=== PATIENT | female | born 1985 ===

== ENCOUNTER → 2018-05-12 10:01 | Emergency (ER) | payer OTHER ==
[2018-05-12 10:43] VITALS: BP 120/67
--- NOTE | 2018-05-12 11:58 | UC ---
Ear Complaint HPI - HPI Summary HPI Summary: Patient presents with a past medical history of Type 1 DM, well controlled. She presents today with complaints of one day right ear canal pain, and swelling. She denies any changes in her hearing. She also reports a swollen lymph node on the right side of her neck that came on at the same time as her ear pain. She denies any throat pain, difficulty swallowing, or speaking. - History of Current Complaint Chief Complaint: UCEar Stated Complaint: EAR PAIN Time Seen by Provider: 05/12/18 11:36 Hx Obtained From: Patient Hx Last Menstrual Period: one week ago ?: No Onset/Duration: Gradual Onset, Lasting Days Pain Intensity: 1 Aggravating Factors: Nothing Alleviating Factors: Nothing Related History: Seasonal Allergies - Allergies/Home Medications Allergies/Adverse Reactions: Allergies Allergy/AdvReac Type Severity Reaction Status Date / Time No Known Allergies Allergy Verified 05/12/18 10:43 Home Medications: Home Medications Insulin LISPRO* [HumaLOG*] 1 dose SQ SEE INSTRUCTIONS 05/12/18 [History Confirmed 05/12/18] PMH/Surg Hx/FS Hx/Imm Hx Previously Healthy: Yes Endocrine History: Diabetes - Surgical History Surgical History: None - Family History Known Family History: Negative: Cardiac Disease, Hypertension, Diabetes - Social History Occupation: Employed Full-time Lives: Alone Alcohol Use: Occasionally Substance Use Type: None Smoking Status (MU): Never Smoked Tobacco Review of Systems Constitutional: Negative Skin: Negative Eyes: Negative ENT: Ear Ache, Other - swollen lymp node on right side of neck. Respiratory: Negative Cardiovascular: Negative Gastrointestinal: Negative Genitourinary: Negative Motor: Negative Neurovascular: Negative Musculoskeletal: Negative Neurological: Negative Psychological: Negative Is Patient Immunocompromised?: No All Other Systems Reviewed And Are Negative: Yes Physical Exam Triage Information Reviewed: Yes Appearance: Well-Appearing Vital Signs: Initial Vital Signs Temp 98.3 F 05/12/18 10:41 Pulse 95 05/12/18 10:41 Resp 12 05/12/18 10:41 BP 120/67 05/12/18 10:41 Pulse Ox 100 05/12/18 10:41 Vital Signs Reviewed: Yes Eye Exam: Normal ENT Exam: Normal ENT: Positive: Other - papable node of right lateral cervical chain. nontender. mobile. right canal swelling noted of the inferior aspect. Neck exam: Normal Respiratory Exam: Normal Cardiovascular Exam: Normal Abdominal Exam: Normal Musculoskeletal Exam: Normal Skin Exam: Normal Ear Complaint Course/Dx - Course Course Of Treatment: Patient presents with a past medical history of Type 1 DM, reproted to be well controlled. SHe present with oriris externa and also has one swollen right sided cervial node. Most likely it is reactive secondary to the otitis extens, but it will need to be evaluated after completionof the antibiotics. Patient was therefore treated with topical and oral antibiotics. Neomycin//polymycin ear drops, and augmentin 500 mg bid x 10 day. The patient verbalized understanidng of and in agreement with the discharge plan. She will make her own arrangment with a PCP for outpatient follow up. - Differential Dx/Diagnosis Provider Diagnoses: otitis externa. cervical lymphadenopathy. Discharge - Sign-Out/Discharge Documenting (check all that apply): Patient Departure - Discharge Plan Condition: Stable Disposition: HOME Prescriptions: Amoxicillin/Clavulanate TAB* [Augmentin TAB 500 mg*] 500 mg PO BID #20 tab Neomycin/Polymyxin B/Hydrocort [Metpsgux-Mqnffmfik-Zt Ear Susp] 3 drop LEFT EAR QID #1 drops.susp Patient Education Materials: Otitis Externa (DC), Lymphadenopathy (ED) Referrals: No Primary Care Phys,NOPCP [Primary Care Provider] - Additional Instructions: You will need to have the swollen lymph node re-checked after you complete the antibiotic. Most like it is swollen due to reactivity; but it will need to be rechecked to make sure it is not something more serious if it remains swollen right after you complete the antibiotics.. - Billing Disposition and Condition Condition: STABLE Disposition: Home
== END | disposition home or self-care (01) ==
LOC: UCEAST 10:01
DX: H60.91 Unspecified otitis externa, right ear (principal); R59.0 Localized enlarged lymph nodes; E10.9 Type 1 diabetes mellitus without complications; Z79.4 Long term (current) use of insulin
CPT/HCPCS: 99202; G0463